=== PATIENT | female | born 1980 | race Caucasian/White ===

== ENCOUNTER 2017-05-17 15:54 | Inpatient (IN) | payer MEDICAID ==
[2017-05-17] MEDS ORDERED: METHYLERGONOVINE 0.2 MG INJ IM (17:00)
[2017-05-17] MEDS ORDERED: OXYTOCIN 30 UNITS/LR 500 ML IV (17:00)
[2017-05-17] MEDS ORDERED: MISOPROSTOL 200 MCG TAB PR (17:00)
[2017-05-17] MEDS ORDERED: BUTORPHANOL 2 MG INJ IV (17:00)
[2017-05-17] MEDS ORDERED: MINERAL OIL LIGHT 10 ML VIAL TOP (17:00)
[2017-05-17] MEDS ORDERED: LIDOCAINE 1% (MPF) 30 ML INJ INJ (17:00)
[2017-05-17] MEDS ORDERED: CARBOPROST 250 MCG INJ IM (17:00)
[2017-05-17 17:24] LABS: ADD MAN DIFF? NO
[2017-05-17 17:26] LABS: WHITE BLOOD COUNT 9.4 10^3/ul (4.8-10.8)
[2017-05-17 17:26] LABS: BASOPHILS % 0.3 % (0.0-2.0); EOSINOPHILS # 0.1 10^3/ul (0.0-0.5); HEMATOCRIT 39.9 % (37.0-47.0); HEMOGLOBIN 13.9 g/dl (12.0-16.0); LYMPHOCYTES # 2.2 10^3/ul (0.8-2.9); MEAN CORPUSCULAR HEMOGLOBIN 31.1 pg (29.0-33.0); MEAN CORPUSCULAR HGB CONC 34.8 g/dl (32.0-37.0); MEAN CORPUSCULAR VOLUME 89.3 fl (82.0-101.0); MEAN PLATELET VOLUME 11.2 fl (7.4-10.4); MONOCYTE # 0.4 10^3/ul (0.3-0.9); MONOCYTES % 3.9 % (0.0-11.0); NEUTROPHIL # 6.7 10^3/ul (1.6-7.5); NEUTROPHILS % 71.6 % (39.0-77.0); PLATELET COUNT 248 10^3/UL (140-415); RED BLOOD COUNT 4.47 10^6/ul (4.20-5.40); RED CELL DISTRIBUTION WIDTH 13.5 % (11.5-14.5)
[2017-05-17 17:30] LABS: INR 0.89; PROTIME 12.1 Sec (11.9-14.9); PT RATIO 0.9
[2017-05-17 17:31] LABS: PARTIAL THROMBOPLASTIN TIME 28.7 Sec (25.0-35.0)
[2017-05-17] MEDS: LACTATED RINGER'S 1,000 ML IV ×2 (17:32→22:53)
[2017-05-17] MEDS: AMPICILLIN 2 GM/NS (PMX) 100 ML IV (17:32)
[2017-05-17] MEDS: OXYTOCIN 30 UNITS/LR 500 ML IV (17:40)
[2017-05-17] MEDS ORDERED: ACCU-CHEK XX (19:00)
[2017-05-17] MEDS: AMPICILLIN 1 GM/NS (PMX) 50 ML IV ×2 (21:10)
[2017-05-18] MEDS: OXYTOCIN 30 UNITS/LR 500 ML IV (03:24)
[2017-05-18] MEDS: IBUPROFEN 600 MG TAB PO ×4 (04:11→17:43)
[2017-05-18] MEDS: LACTATED RINGER'S 1,000 ML IV* ×3 (05:48→18:44)
[2017-05-18] MEDS ORDERED: DEXTROSE 5%-LR 1,000 ML IV (05:48)
[2017-05-18] MEDS ORDERED: CARBOPROST 250 MCG INJ IM (06:00)
[2017-05-18] MEDS ORDERED: OXYCODONE/ASPIRIN (4.88/325) TAB PO (06:00)
[2017-05-18] MEDS ORDERED: DIBUCAINE 1% 30 GM OINT PR (06:00)
[2017-05-18] MEDS ORDERED: ACETAMINOPHEN 325 MG TAB PO (06:00)
[2017-05-18] MEDS ORDERED: SENNA/DOCUSATE NA (8.6MG/50MG) TAB PO (06:00)
[2017-05-18] MEDS ORDERED: OXYTOCIN 30 UNITS/LR 500 ML IV (06:00)
[2017-05-18] MEDS ORDERED: METHYLERGONOVINE 0.2 MG INJ IM (06:00)
[2017-05-18] MEDS ORDERED: DIPHENHYDRAMINE 50 MG INJ IV (06:00)
[2017-05-18] MEDS ORDERED: MISOPROSTOL 200 MCG TAB PR (06:00)
[2017-05-18] MEDS ORDERED: ONDANSETRON 4 MG INJ IV (06:00)
[2017-05-18] MEDS ORDERED: ZOLPIDEM 5 MG TAB PO (06:00)
[2017-05-18] MEDS: WITCH HAZEL/GLYCERIN PAD PR (10:36)
[2017-05-18] MEDS: BENZOCAINE 20% 56 ML SPRAY TOP (10:36)
[2017-05-18] MEDS: LANOLIN 7 GM TUBE TOP (10:37)
[2017-05-18] MEDS: INFLUENZA VIRUS VACCINE 0.5 ML SYG IM* (11:00)
[2017-05-18 22:15] LABS: RAPID PLASMA REAGIN NONREACTIVE (NR)
[2017-05-19] MEDS: IBUPROFEN 600 MG TAB PO ×4 (00:29→17:28)
[2017-05-19] MEDS: LACTATED RINGER'S 1,000 ML IV* ×3 (05:48→21:48)
[2017-05-19 10:57] LABS: ADD MAN DIFF? NO
[2017-05-19 10:59] LABS: BASOPHILS % 0.2 % (0.0-2.0); EOSINOPHILS # 0.1 10^3/ul (0.0-0.5); EOSINOPHILS % 0.4 % (0.0-7.0); HEMATOCRIT 32.4 % (37.0-47.0); HEMOGLOBIN 11.1 g/dl (12.0-16.0); LYMPHOCYTES # 2.4 10^3/ul (0.8-2.9); LYMPHOCYTES % 20.4 % (15.0-51.0); MEAN CORPUSCULAR HEMOGLOBIN 30.9 pg (29.0-33.0); MEAN CORPUSCULAR HGB CONC 34.3 g/dl (32.0-37.0); MEAN CORPUSCULAR VOLUME 90.3 fl (82.0-101.0); MEAN PLATELET VOLUME 10.2 fl (7.4-10.4); MONOCYTE # 0.5 10^3/ul (0.3-0.9); MONOCYTES % 3.8 % (0.0-11.0); NEUTROPHIL # 8.8 10^3/ul (1.6-7.5); NEUTROPHILS % 74.7 % (39.0-77.0); PLATELET COUNT 208 10^3/UL (140-415); RED BLOOD COUNT 3.59 10^6/ul (4.20-5.40); RED CELL DISTRIBUTION WIDTH 13.8 % (11.5-14.5)
[2017-05-19 10:59] LABS: WHITE BLOOD COUNT 11.8 10^3/ul (4.8-10.8)
[2017-05-20] MEDS: LACTATED RINGER'S 1,000 ML IV* (05:48)
[2017-05-20] MEDS: IBUPROFEN 600 MG TAB PO ×3 (06:00→11:57)
[2017-05-20] MEDS: MEASLES,MUMPS,RUBELLA VACCINE INJ SC* (09:00)
[2017-05-20] MEDS: DIPHTH/TET/ACEL PERTUSS (ADULT) 0.5 ML VIAL IM* (09:00)
== END 2017-05-20 14:19 | disposition home or self-care (01) | DRG 775 ==
LOC: PP1 05-18 06:30 → L-D 15:54
PROVIDERS: Obstetrics & Gynecology
PROC: 10E0XZZ Delivery of Products of Conception, External Approach (ICD-10-PCS; principal; 2017-05-18)
PROC: 0KQM0ZZ Repair Perineum Muscle, Open Approach (ICD-10-PCS; 2017-05-18)
PROC: 3E033VJ Introduction of Other Hormone into Peripheral Vein, Percutaneous Approach (ICD-10-PCS; 2017-05-18)
DX: O24.429 Gestational diabetes mellitus in childbirth, unspecified control (principal); O70.1 Second degree perineal laceration during delivery; Z3A.39 39 weeks gestation of pregnancy; Z37.0 Single live birth
CPT/HCPCS: 82962; 85025; 85610; 85730; 86592; 86900; 86901; 90686; 99464